=== PATIENT | female | born 1990 | race Caucasian/White ===

== ENCOUNTER 2018-10-27 11:04 | Inpatient (IN) | payer OTHER ==
[~2018-10-27] VITALS: Ht 149.9 cm; Wt 86.2 kg
[2018-10-27 11:41] VITALS: BP 100/51
[2018-10-27] MEDS ORDERED: LACTATED RINGERS 1,000 ML IV SCH (11:45)
[2018-10-27] MEDS ORDERED: MULTIVITAMIN PO (11:46)
[2018-10-27 12:36] LABS: HCG UR SG 1.011 (1.003-1.030)
[2018-10-27] MEDS ORDERED: FENTANYL PF 250 MCG/5ML ONE (13:39)
[2018-10-27] MEDS ORDERED: MIDAZOLAM 1 MG/ML, 2ML ONE (13:39)
[2018-10-27] MEDS ORDERED: PROPOFOL 10 MG/ML, 20ML ONE ×2 (13:40→13:58)
[2018-10-27] MEDS ORDERED: ONDANSETRON 2MG/ML, 2ML ONE ×2 (13:40→13:58)
[2018-10-27] MEDS ORDERED: CEFAZOLIN 1,000 MG ONE ×3 (13:40→13:58)
[2018-10-27] MEDS ORDERED: DEXAMETHASONE 4 MG/ML, 1ML ONE ×3 (13:40→13:58)
[2018-10-27] MEDS ORDERED: BUPIVACAINE/PF-EPI 0.5% 1:200K ONE (13:44)
[2018-10-27] MEDS ORDERED: MIDAZOLAM 1 MG/ML, 5ML ONE (13:58)
[2018-10-27] MEDS ORDERED: ONDANSETRON 2MG/ML, 2ML IV PRN (14:00)
[2018-10-27] MEDS ORDERED: PROMETHAZINE 12.5 MG SUPP PR PRN (14:00)
[2018-10-27] MEDS ORDERED: LABETALOL 5MG/ML, 20ML IV PRN (14:00)
[2018-10-27] MEDS ORDERED: PROMETHAZINE 25 MG/ML, 1ML IV PRN (14:00)
[2018-10-27] MEDS ORDERED: OXYcodone 5 MG/5 ML ORAL.SOL UDC PO PRN (14:00)
[2018-10-27] MEDS ORDERED: hydrALAzine 20 MG/ML, 1ML IV PRN (14:00)
[2018-10-27] MEDS ORDERED: PROMETHAZINE 25 MG SUPP PR PRN (14:00)
[2018-10-27] MEDS ORDERED: MORPHINE SULFATE 4 MG/ML, 1ML IVPush PRN (14:00)
[2018-10-27] MEDS ORDERED: ACETAMINOPHEN 325 MG TABLET PO PRN (14:00)
[2018-10-27] MEDS ORDERED: MEPERIDINE/PF 25MG/0.5ML IVPush PRN (14:00)
[2018-10-27] MEDS ORDERED: PROMETHAZINE 25 MG/ML, 1ML IM PRN ×2 (14:00)
[2018-10-27] MEDS ORDERED: ONDANSETRON ODT 8 MG PO PRN (14:00)
[2018-10-27] MEDS ORDERED: BUPIVACAINE/PF-EPI 0.5% 1:200K INFIL ONE (14:32)
[2018-10-27] MEDS ORDERED: ACETAMINOPHEN 650 MG/20.3 ML UDC ONE (14:45)
[2018-10-27] MEDS ORDERED: FENTANYL PF 100 MCG/2ML ONE (14:45)
[2018-10-27] MEDS ORDERED: OXYcodone 5 MG/5 ML ORAL.SOL UDC ONE (14:46)
[2018-10-27] MEDS: FENTANYL PF 100 MCG/2ML IV PRN ×2 (14:48→14:57)
[2018-10-27] MEDS ORDERED: HYDROmorphone 2 MG/ML, 1ML ONE (14:58)
[2018-10-27] MEDS: HYDROmorphone 2 MG/ML, 1ML IVPush PRN ×2 (15:00→15:13)
[2018-10-27 16:44] VITALS: BP 122/66
[2018-10-27] MEDS: morphine SULFATE 10 MG/ML, 1ML IV PRN ×2 (16:59→17:22)
[2018-10-27] MEDS: AMOXICILLIN/CLAV 875-125MG TABLET PO SCH (17:22)
[2018-10-27] MEDS: OXYcodone/APAP 5/325MG TABLET PO PRN (19:30)
[2018-10-27 19:36] VITALS: BP 122/70
[2018-10-27] MEDS: SODIUM CHLORIDE FLUSH 10ML SYR IVF SCH (21:00)
[2018-10-27] MEDS: DOCUSATE 100 MG CAPSULE PO SCH (21:32)
[2018-10-28 00:36] VITALS: BP 126/73
[2018-10-28] MEDS: OXYcodone/APAP 5/325MG TABLET PO PRN ×6 (01:13→21:54)
[2018-10-28] MEDS: AMOXICILLIN/CLAV 875-125MG TABLET PO SCH ×2 (05:38→18:03)
[2018-10-28 08:00] VITALS: BP 113/76
[2018-10-28] MEDS: ONDANSETRON 2MG/ML, 2ML IV PRN ×2 (09:42→21:20)
[2018-10-28] MEDS: SODIUM CHLORIDE FLUSH 10ML SYR IVF SCH ×2 (09:42→21:21)
[2018-10-28] MEDS: DOCUSATE 100 MG CAPSULE PO SCH ×2 (09:42→21:21)
[2018-10-28] MEDS: morphine SULFATE 10 MG/ML, 1ML IV PRN ×2 (09:42→21:21)
[2018-10-28 13:24] VITALS: BP 93/50
[2018-10-28 19:32] VITALS: BP 109/60
[2018-10-29 00:38] VITALS: BP 113/71
[2018-10-29] MEDS: AMOXICILLIN/CLAV 875-125MG TABLET PO SCH ×2 (05:04→17:00)
[2018-10-29 07:40] VITALS: BP 102/53
[2018-10-29] MEDS: morphine SULFATE 10 MG/ML, 1ML IV PRN ×2 (10:02→22:13)
[2018-10-29] MEDS: ONDANSETRON 2MG/ML, 2ML IV PRN ×3 (10:02→22:13)
[2018-10-29] MEDS: DOCUSATE 100 MG CAPSULE PO SCH ×2 (10:02→21:29)
[2018-10-29] MEDS: SODIUM CHLORIDE FLUSH 10ML SYR IVF SCH ×2 (10:03→21:29)
[2018-10-29] MEDS: OXYcodone/APAP 5/325MG TABLET PO PRN ×2 (10:25→21:29)
[2018-10-29] MEDS ORDERED: IBUPROFEN 200 MG TABLET PO PRN (13:00)
[2018-10-29 13:16] VITALS: BP 107/63
[2018-10-29 19:20] VITALS: BP 96/65
[2018-10-30 03:00] VITALS: BP 93/52
[2018-10-30] MEDS: AMOXICILLIN/CLAV 875-125MG TABLET PO SCH (05:37)
[2018-10-30 07:07] VITALS: BP 105/57
[2018-10-30] MEDS: SODIUM CHLORIDE FLUSH 10ML SYR IVF SCH (08:20)
[2018-10-30] MEDS: DOCUSATE 100 MG CAPSULE PO SCH (08:20)
[2018-10-30] MEDS: OXYcodone/APAP 5/325MG TABLET PO PRN (09:17)
[2018-10-30] MEDS ORDERED: OXYC-302 PO (10:36)
[2018-10-30] MEDS ORDERED: AMOX1TAB64 PO (10:36)
[2018-10-30] MEDS ORDERED: IBUP-1623 PO (10:37)
== END 2018-10-30 11:30 | disposition home or self-care (01) | DRG 585 ==
LOC: OUT 11:04 → EDSTATUS 13:00 → 4NOR 16:10 → OUT 21:52 → DCLOUNGE 10-30 11:10
PROVIDERS: ADMIT Surgery; ATTEND Surgery
PROC: 0HBT0ZZ Excision of Right Breast, Open Approach (ICD-10-PCS; principal; 2018-10-27 13:00)
DX: N61.1 Abscess of the breast and nipple (principal); Z83.3 Family history of diabetes mellitus
CPT/HCPCS: 81025; 87070; 87075; 87181; 87205; 88305; G0378; J0690; J1100; J1170; J2250; J2405; J2704; J3010; J2270; J7120